=== PATIENT | female | born 1995 | race Caucasian/White ===

== ENCOUNTER 2019-01-11 13:46 | Emergency (ER) | payer OTHER ==
[~2019-01-11] VITALS: Ht 154.9 cm; Wt 54.4 kg
[~2019-01-11 13:46] MED LIST: ANTIVERT25 M1 PO
[2019-01-11] MEDS ORDERED: CIPRO500 MG (14:01)
[2019-01-11] MEDS ORDERED: KETOROLAC TROME10 MG (14:02)
[2019-01-11] MEDS ORDERED: CLEOCIN HCL300 MG PO (19:08)
== END 2019-01-11 19:15 | disposition home or self-care (01) ==
LOC: ER 13:46
DX: L05.91 Pilonidal cyst without abscess (principal)

== ENCOUNTER 2019-01-22 09:38 | Emergency (ER) | payer OTHER ==
[~2019-01-22] VITALS: Ht 154.9 cm; Wt 56.2 kg
[~2019-01-22 09:38] MED LIST changes: +CIPRO500 MG; +CLEOCIN HCL300 MG PO; +KETOROLAC TROME10 MG
[2019-01-22] MEDS ORDERED: CEFADROXIL500 MG (09:49)
== END 2019-01-22 11:00 | disposition home or self-care (01) ==
LOC: ER 09:38
DX: L05.01 Pilonidal cyst with abscess (principal)

== ENCOUNTER 2021-08-16 18:29 | Emergency (ER) | payer OTHER ==
[~2021-08-16] VITALS: Ht 157.5 cm; Wt 63.5 kg
[~2021-08-16 18:29] MED LIST changes: +CEFADROXIL500 MG
[2021-08-16] MEDS ORDERED: ZOFRAN8 MG PO (21:37)
[2021-08-16] MEDS ORDERED: PRENATAL TABLE1 EAC1 PO (21:37)
== END 2021-08-16 21:44 | disposition home or self-care (01) ==
LOC: ER 18:29
DX: O21.8 Other vomiting complicating pregnancy (principal); Z3A.00 Weeks of gestation of pregnancy not specified

== ENCOUNTER 2021-10-11 15:13 | Outpatient (CLI) | payer OTHER ==
[~2021-10-11 15:13] MED LIST changes: +PRENATAL TABLE1 EAC1 PO; +ZOFRAN8 MG PO
== END 2021-10-11 16:45 | disposition home or self-care (01) ==
LOC: PRENATAL 15:13
PROVIDERS: ATTEND Obstetrics & Gynecology Maternal & Fetal Medicine
DX: O36.80X0 Pregnancy with inconclusive fetal viability, not applicable or unspecified (principal); Z36.9 Encounter for antenatal screening, unspecified; Z3A.13 13 weeks gestation of pregnancy

== ENCOUNTER 2021-12-02 07:57 | Outpatient (CLI) | payer OTHER | END 2021-12-02 09:10 | disposition home or self-care (01) | LOC: PRENATAL 07:57 | PROVIDERS: ATTEND Obstetrics & Gynecology Maternal & Fetal Medicine | DX: O35.0XX0 Maternal care for (suspected) central nervous system malformation in fetus, not applicable or unspecified (principal); O35.3XX0 Maternal care for (suspected) damage to fetus from viral disease in mother, not applicable or unspecified; Z3A.21 21 weeks gestation of pregnancy ==

== ENCOUNTER 2022-02-18 13:41 | Outpatient (CLI) | payer OTHER | END 2022-02-18 15:29 | disposition home or self-care (01) | LOC: PRENATAL 13:41 | PROVIDERS: ATTEND Obstetrics & Gynecology Maternal & Fetal Medicine | DX: O26.849 Uterine size-date discrepancy, unspecified trimester (principal); O35.9XX0 Maternal care for (suspected) fetal abnormality and damage, unspecified, not applicable or unspecified; O36.8199 Decreased fetal movements, unspecified trimester, other fetus ==

== ENCOUNTER 2022-03-25 09:34 | Outpatient (CLI) | payer OTHER ==
[2022-03-25] MEDS ORDERED: IRON325 MG PO (11:45)
== END 2022-03-25 15:34 | disposition home or self-care (01) ==
LOC: OBS/DEL 09:34
PROVIDERS: ATTEND Obstetrics & Gynecology
DX: O32.1XX0 Maternal care for breech presentation, not applicable or unspecified (principal); Z3A.37 37 weeks gestation of pregnancy; Z20.822 Contact with and (suspected) exposure to COVID-19

== ENCOUNTER 2022-03-31 07:00 | Inpatient (IN) | payer OTHER ==
[~2022-03-31] VITALS: Ht 157.5 cm; Wt 3.2 kg
[~2022-03-31 07:00] MED LIST changes: +IRON325 MG PO
== END 2022-04-09 13:55 | disposition home or self-care (01) | DRG 788 ==
LOC: OB/GYN 04-06 07:00 → O/R 04-06 09:07 → OB/GYN 04-06 11:24
PROVIDERS: ADMIT Obstetrics & Gynecology; ATTEND Obstetrics & Gynecology
PROC: 4A1HXCZ Monitoring of Products of Conception, Cardiac Rate, External Approach (ICD-10-PCS; 2022-04-06)
PROC: 10D00Z1 Extraction of Products of Conception, Low, Open Approach (ICD-10-PCS; principal; 2022-04-06 08:45)
DX: O32.1XX0 Maternal care for breech presentation, not applicable or unspecified (principal); O99.824 Streptococcus B carrier state complicating childbirth; Z3A.39 39 weeks gestation of pregnancy; Z37.0 Single live birth; Z20.822 Contact with and (suspected) exposure to COVID-19